=== PATIENT | female | born 2000 | race Native Hawaiian/Other Pacific Islander ===

== ENCOUNTER 2018-07-10 15:55 | Emergency (ER) | payer OTHER ==
[~2018-07-10] VITALS: Ht 167.6 cm; Wt 64.9 kg
[2018-07-10] MEDS ORDERED: AMOXICILLIN250 M2 PO (16:17)
[2018-07-10] MEDS ORDERED: 904272561 PO (17:06)
[2018-07-10 17:45] VITALS: BP 113/72; TEMP 97.6
== END 2018-07-10 17:45 | disposition home or self-care (01) ==
LOC: ED 15:55
PROC: 0H9GXZZ Drainage of Left Hand Skin, External Approach (ICD-10-PCS; principal; 2018-07-10)
DX: L02.512 Cutaneous abscess of left hand (principal)
CPT/HCPCS: 96372; 99283; J0690; J1885; J2405